=== PATIENT | female | born 1995 | race Caucasian/White ===

== ENCOUNTER 2021-10-19 09:13 | Emergency (ER) | payer OTHER ==
[2021-10-19 10:59] LABS: BASOPHIL 0.9 % (0-2); EOSINOPHIL 0.3 % (0-5); HCT 41.3 % (37.0-47.0); LYMPHOCYTE 27.6 % (15-48); MCH 28.5 pg (25.0-31.0); MCHC 33.9 g/dL (32.0-36.0); MCV 84.1 fL (78.0-100.0); MONOCYTE 11.9 % (0-12); MPV 11.7 fL (6.0-9.5); NEUTROPHIL 58.7 % (41-80); NRBC 0; PLT 122 K/uL (150-400); RBC 4.91 M/uL (4.20-5.40); RDW 12.4 % (11.5-14.0); WBC 3.4 K/uL (4.0-10.5)
[2021-10-19 11:09] LABS: ALBUMIN 3.5 g/dL (3.4-5.0); BILIRUBIN - TOTAL 0.4 mg/dL (0.2-1.0); BUN/CREAT RATIO (CALC) 30.9 RATIO; CREATININE 0.55 mg/dL (0.51-0.95); GLOBULIN (CALCULATION) 3.8 g/dL; MAGNESIUM 1.6 mg/dL (1.8-2.4); POTASSIUM 3.6 mmol/L (3.5-5.1); TOTAL PROTEIN 7.3 g/dL (6.4-8.2)
[2021-10-19 12:02] LABS: BILIRUBIN NEGATIVE (NEGATIVE); BLOOD TRACE-INTACT Ery/uL (NEGATIVE); COLOR YELLOW (YELLOW); GLUCOSE (U) 3+ mg/dL (NORMAL); LEUKOCYTES 1+ Leu/uL (NEGATIVE); NITRITE NEGATIVE (NEGATIVE); PROTEIN TRACE (LOW) mg/dL (NEGATIVE); SPECIFIC GRAVITY >=1.030 (1.001-1.030); UROBILINOGEN 0.2 mg/dL (0.2-1.0)
[2021-10-19 12:03] LABS: CLARITY HAZY (CLEAR)
[2021-10-19 12:17] LABS: BACTERIA 4+; URINARY RBC RARE; URINARY WBC TNTC
[2021-10-19 15:27] LABS: BUN/CREAT RATIO (CALC) 29.2 RATIO; CREATININE 0.48 mg/dL (0.51-0.95); MAGNESIUM 2.1 mg/dL (1.8-2.4); POTASSIUM 3.5 mmol/L (3.5-5.1)
[2021-10-19] MEDS ORDERED: METFORMIN HCL500 MG PO (16:33)
[2021-10-19] MEDS ORDERED: PAXLOVID CO-PA1 EAC1 PO (16:33)
[2021-10-19] MEDS ORDERED: SYNTHROID50 MCG PO (16:33)
== END 2021-10-19 17:10 | disposition home or self-care (01) ==
LOC: FER 09:13
PROVIDERS: Emergency Medicine
DX: E11.65 Type 2 diabetes mellitus with hyperglycemia (principal); U07.1 COVID-19; E03.9 Hypothyroidism, unspecified; F17.290 Nicotine dependence, other tobacco product, uncomplicated; Z28.310 Unvaccinated for COVID-19
CPT/HCPCS: 36415; 80048; 80053; 81001; 82009; 83605; 83690; 83735; 84439; 84443; 84681; 85025; 93005; J3475; J7030; U0002